=== PATIENT | male | born 1965 | race Two or more races ===

== ENCOUNTER 2018-03-07 18:54 | Inpatient (IN) | payer SELFPAY ==
[~2018-03-07] VITALS: Ht 177.8 cm; Wt 74.5 kg
[2018-03-07 19:09] VITALS: Ht 177.8 cm; Wt 74.5 kg
[2018-03-07 19:45] LABS: BASOPHIL % 0.6 % (0-2); PLATELET COUNT 294 x10^3mcL (130-400); RED CELL DISTRIBUTION WIDTH 13.5 % (11.5-14.5)
[2018-03-07 20:18] LABS: CALCIUM 9.6 mg/dL (8.5-10.1); CARBON DIOXIDE 27.4 mmol/L (21-32); CHLORIDE SERUM 108 mmol/L (98-107); CREATININE SERUM 1.3 mg/dL (0.7-1.3); GFR1 > 60 mL/min; GLUCOSE SERUM 81 mg/dL (74-106); POTASSIUM SERUM 3.8 mmol/L (3.5-5.1); SODIUM SERUM 144 mmol/L (136-145)
[2018-03-07 20:25] LABS: ALBUMIN 3.9 g/dL (3.4-5.0); ALKALINE PHOSPHATASE 58 U/L (46-116); ALT/SGPT 111 U/L (16-63); AST/SGOT 81 U/L (15-37); BILIRUBIN TOTAL 0.6 mg/dL (0.20-1.00); TOTAL PROTEIN, SERUM 7.6 g/dL (6.4-8.2)
[2018-03-07 22:48] VITALS: BP 113/55
[2018-03-07 23:24] LABS: MAGNESIUM 2.1 mg/dL (1.8-2.4); PHOSPHOROUS 2.3 mg/dL (2.5-4.9)
[2018-03-07 23:26] LABS: CHOLESTEROL/HDL RATIO 3.1
[2018-03-07 23:37] LABS: FREE T4 1.27 ng/dL (0.76-1.46); FREE THYROXINE INDEX 3.5 ug/dL (1.4-4.5); T4(THYROXINE) 11.9 ug/dL (4.7-13.3)
[2018-03-07 23:58] LABS: T3 TOTAL 2.11 ng/mL
[2018-03-08 05:39] VITALS: BP 105/61
[2018-03-08 05:52] VITALS: BP 105/61
[2018-03-08 06:09] LABS: UA SPECIFIC GRAVITY >=1.030 (1.005-1.035); microscopic required? YES; urine erythrocyte NEGATIVE (NEGATIVE)
[2018-03-08 06:21] LABS: AMPHETAMINE QUAL UR POSITIVE (See below)
[2018-03-08 06:32] LABS: CARBON DIOXIDE 23.5 mmol/L (21-32); CHLORIDE SERUM 111 mmol/L (98-107); CREATININE SERUM 0.9 mg/dL (0.7-1.3); GFR1 > 60 mL/min; GLUCOSE SERUM 83 mg/dL (74-106); POTASSIUM SERUM 3.6 mmol/L (3.5-5.1); SODIUM SERUM 144 mmol/L (136-145)
[2018-03-08 08:22] LABS: BASOPHIL % 0.5 % (0-2); PLATELET COUNT 234 x10^3mcL (130-400)
[2018-03-08 09:24] VITALS: BP 99/56
[2018-03-08 12:48] VITALS: BP 95/54
[2018-03-08 16:57] VITALS: BP 104/57
[2018-03-08 18:07] VITALS: BP 104/57
== END 2018-03-08 18:42 | disposition home or self-care (01) | DRG 917 ==
LOC: ED 18:54 → DU 21:36
PROVIDERS: Emergency Medicine; Internal Medicine
DX: T43.621A Poisoning by amphetamines, accidental (unintentional), initial encounter (principal); N17.0 Acute kidney failure with tubular necrosis; G40.909 Epilepsy, unspecified, not intractable, without status epilepticus; T40.1X1A Poisoning by heroin, accidental (unintentional), initial encounter; E83.39 Other disorders of phosphorus metabolism; K75.9 Inflammatory liver disease, unspecified; F15.188 Other stimulant abuse with other stimulant-induced disorder; F11.188 Opioid abuse with other opioid-induced disorder; R74.0 Nonspecific elevation of levels of transaminase and lactic acid dehydrogenase [LDH]; M94.0 Chondrocostal junction syndrome [Tietze]; Y92.89 Other specified places as the place of occurrence of the external cause; Z71.51 Drug abuse counseling and surveillance of drug abuser
CPT/HCPCS: 83880; 84439; G0480; J2060; J2310; J7030; Q0162

== ENCOUNTER 2018-05-03 06:06 | Inpatient (IN) | payer OTHER ==
[~2018-05-03] VITALS: Ht 182.9 cm; Wt 73.0 kg
[2018-05-03 06:10] VITALS: Ht 182.9 cm; Wt 73.0 kg
[2018-05-03 07:06] LABS: CALCIUM 8.9 mg/dL (8.5-10.1); CARBON DIOXIDE 29.4 mmol/L (21-32); CHLORIDE SERUM 92 mmol/L (98-107); GFR1 > 60 mL/min; GLUCOSE SERUM 107 mg/dL (74-106); POTASSIUM SERUM 3.8 mmol/L (3.5-5.1); SODIUM SERUM 127 mmol/L (136-145)
[2018-05-03 07:10] LABS: ALBUMIN 3.6 g/dL (3.4-5.0); ALKALINE PHOSPHATASE 65 U/L (46-116); ALT/SGPT 41 U/L (16-63); AST/SGOT 33 U/L (15-37); BILIRUBIN TOTAL 1.2 mg/dL (0.20-1.00); LIPASE 59 IU/L (73-393); TOTAL PROTEIN, SERUM 8.1 g/dL (6.4-8.2)
[2018-05-03 07:29] LABS: microscopic required? NO
[2018-05-03 07:54] LABS: BASOPHIL % 0.4 % (0-2); PLATELET COUNT 246 x10^3mcL (130-400); RED CELL DISTRIBUTION WIDTH 13.2 % (11.5-14.5)
[2018-05-03 08:28] LABS: UA SPECIFIC GRAVITY 1.025 (1.005-1.035); urine erythrocyte NEGATIVE (NEGATIVE)
[2018-05-03 13:20] VITALS: BP 126/78
[2018-05-03 13:32] LABS: MAGNESIUM 1.6 mg/dL (1.8-2.4); PHOSPHOROUS 3.2 mg/dL (2.5-4.9)
[2018-05-03 13:35] LABS: T3 TOTAL 1.02 ng/mL
[2018-05-03 13:40] LABS: FREE T4 1.07 ng/dL (0.76-1.46); FREE THYROXINE INDEX 2.9 ug/dL (1.4-4.5)
[2018-05-03 13:41] LABS: CHOLESTEROL/HDL RATIO 2.5
[2018-05-03 14:30] LABS: AMPHETAMINE QUAL UR POSITIVE (See below)
[2018-05-03 21:56] VITALS: BP 114/69
[2018-05-04 05:28] VITALS: BP 127/75
[2018-05-04 07:21] LABS: CALCIUM 8.6 mg/dL (8.5-10.1); CHLORIDE SERUM 100 mmol/L (98-107); CREATININE SERUM 0.9 mg/dL (0.7-1.3); GFR1 > 60 mL/min; GLUCOSE SERUM 112 mg/dL (74-106); MAGNESIUM 1.9 mg/dL (1.8-2.4); POTASSIUM SERUM 3.9 mmol/L (3.5-5.1); SODIUM SERUM 137 mmol/L (136-145)
[2018-05-04 07:40] LABS: PLATELET COUNT 247 x10^3mcL (130-400); RED CELL DISTRIBUTION WIDTH 13.6 % (11.5-14.5)
[2018-05-04 08:00] VITALS: BP 105/78
[2018-05-04 11:14] LABS: BAND NEUTROPHIL 1 % (0-10); BASOPHIL 0 % (0-2); MONOCYTE 11 % (0-7); SEGMENTED NEUTROPHILS 83 % (37-75)
[2018-05-04 11:15] LABS: rbc morphology (normal/abnorm) NORMAL (NORMAL)
[2018-05-04 13:00] VITALS: BP 117/77
[2018-05-04 17:07] VITALS: BP 134/74
[2018-05-04 21:26] VITALS: BP 131/74
[2018-05-04 21:30] VITALS: BP 131/74
[2018-05-05 05:01] VITALS: BP 144/87
[2018-05-05 07:23] LABS: CALCIUM 8.5 mg/dL (8.5-10.1); CHLORIDE SERUM 102 mmol/L (98-107); CREATININE SERUM 0.9 mg/dL (0.7-1.3); GFR1 > 60 mL/min; GLUCOSE SERUM 122 mg/dL (74-106); POTASSIUM SERUM 3.9 mmol/L (3.5-5.1); SODIUM SERUM 137 mmol/L (136-145)
[2018-05-05 07:26] LABS: PLATELET COUNT 311 x10^3mcL (130-400); RED CELL DISTRIBUTION WIDTH 13.8 % (11.5-14.5)
[2018-05-05 10:27] VITALS: BP 143/83
[2018-05-05 11:13] LABS: BAND NEUTROPHIL 2 % (0-10); BASOPHIL 0 % (0-2); MONOCYTE 12 % (0-7); SEGMENTED NEUTROPHILS 80 % (37-75)
[2018-05-05 12:49] VITALS: BP 149/82
[2018-05-05 17:10] VITALS: BP 143/90
[2018-05-05 20:41] VITALS: BP 138/76
[2018-05-06 05:37] VITALS: BP 147/88
[2018-05-06 06:50] LABS: ALBUMIN 2.2 g/dL (3.4-5.0); ALKALINE PHOSPHATASE 57 U/L (46-116); ALT/SGPT 22 U/L (16-63); AST/SGOT 19 U/L (15-37); BILIRUBIN TOTAL 0.4 mg/dL (0.20-1.00); CALCIUM 8.6 mg/dL (8.5-10.1); CARBON DIOXIDE 23.7 mmol/L (21-32); CHLORIDE SERUM 102 mmol/L (98-107); CREATININE SERUM 0.8 mg/dL (0.7-1.3); GFR1 > 60 mL/min; GLUCOSE SERUM 115 mg/dL (74-106); LIPASE 99 IU/L (73-393); MAGNESIUM 1.9 mg/dL (1.8-2.4); POTASSIUM SERUM 4.4 mmol/L (3.5-5.1); SODIUM SERUM 135 mmol/L (136-145); TOTAL PROTEIN, SERUM 6.7 g/dL (6.4-8.2)
[2018-05-06 08:34] LABS: PLATELET COUNT 364 x10^3mcL (130-400); RED CELL DISTRIBUTION WIDTH 12.6 % (11.5-14.5)
[2018-05-06 09:58] VITALS: BP 137/76
[2018-05-06 10:46] LABS: BAND NEUTROPHIL 0 % (0-10); BASOPHIL 0 % (0-2); MONOCYTE 7 % (0-7); SEGMENTED NEUTROPHILS 90 % (37-75)
[2018-05-06 10:47] LABS: PLATELET MORPHOLOGY PLATELETS NORMAL; rbc morphology (normal/abnorm) ABNORMAL (NORMAL)
[2018-05-06 13:01] VITALS: BP 145/80
[2018-05-06 14:40] VITALS: BP 126/81
[2018-05-06 18:46] VITALS: BP 140/65
[2018-05-06 19:20] VITALS: BP 144/79
[2018-05-07 06:01] VITALS: BP 145/85
[2018-05-07 08:34] LABS: PLATELET COUNT 372 x10^3mcL (130-400); RED CELL DISTRIBUTION WIDTH 13.6 % (11.5-14.5)
[2018-05-07 08:40] LABS: ALKALINE PHOSPHATASE 57 U/L (46-116); ALT/SGPT 25 U/L (16-63); AST/SGOT 24 U/L (15-37); BILIRUBIN TOTAL 0.33 mg/dL (0.20-1.00); CALCIUM 7.9 mg/dL (8.5-10.1); CARBON DIOXIDE 25.2 mmol/L (21-32); CHLORIDE SERUM 103 mmol/L (98-107); CREATININE SERUM 0.7 mg/dL (0.7-1.3); GFR1 > 60 mL/min; GLUCOSE SERUM 112 mg/dL (74-106); MAGNESIUM 1.7 mg/dL (1.8-2.4); PHOSPHOROUS 3.6 mg/dL (2.5-4.9); POTASSIUM SERUM 3.7 mmol/L (3.5-5.1); SODIUM SERUM 136 mmol/L (136-145); TOTAL PROTEIN, SERUM 6.2 g/dL (6.4-8.2)
[2018-05-07 09:49] VITALS: BP 145/85
[2018-05-07 09:57] VITALS: BP 125/77
[2018-05-07 10:03] LABS: ATYPICAL LYMPH 1 %; BAND NEUTROPHIL 0 % (0-10); BASOPHIL 0 % (0-2); MONOCYTE 12 % (0-7); SEGMENTED NEUTROPHILS 86 % (37-75)
[2018-05-07 10:04] LABS: PLATELET MORPHOLOGY PLATELETS NORMAL; rbc morphology (normal/abnorm) ABNORMAL (NORMAL)
[2018-05-07 12:42] VITALS: BP 104/75
[2018-05-07 16:48] VITALS: BP 141/78
[2018-05-07 20:17] VITALS: BP 140/73
[2018-05-08 05:40] VITALS: BP 123/69
[2018-05-08 06:41] LABS: RED CELL DISTRIBUTION WIDTH 13.7 % (11.5-14.5)
[2018-05-08 07:03] LABS: ALKALINE PHOSPHATASE 89 U/L (46-116); ALT/SGPT 22 U/L (16-63); AST/SGOT 27 U/L (15-37); BILIRUBIN DIRECT 0.11 mg/dL (0.0-0.2); BILIRUBIN TOTAL 0.29 mg/dL (0.20-1.00); CALCIUM 8.1 mg/dL (8.5-10.1); CARBON DIOXIDE 27.1 mmol/L (21-32); CHLORIDE SERUM 104 mmol/L (98-107); CREATININE SERUM 0.9 mg/dL (0.7-1.3); GFR1 > 60 mL/min; GLUCOSE SERUM 95 mg/dL (74-106); POTASSIUM SERUM 4.5 mmol/L (3.5-5.1); SODIUM SERUM 141 mmol/L (136-145); TOTAL PROTEIN, SERUM 6.7 g/dL (6.4-8.2)
[2018-05-08 07:17] LABS: PLATELET COUNT 421 x10^3mcL (130-400)
[2018-05-08 10:13] VITALS: BP 128/66
[2018-05-08 10:36] LABS: ATYPICAL LYMPH 1 %; BAND NEUTROPHIL 1 % (0-10); BASOPHIL 0 % (0-2); MONOCYTE 10 % (0-7); SEGMENTED NEUTROPHILS 76 % (37-75)
[2018-05-08 10:38] LABS: PLATELET MORPHOLOGY PLATELETS NORMAL; rbc morphology (normal/abnorm) ABNORMAL (NORMAL)
[2018-05-08 14:07] VITALS: BP 121/68
[2018-05-08 17:00] VITALS: BP 142/80
[2018-05-08 20:38] VITALS: BP 124/73
[2018-05-09 05:50] VITALS: BP 136/78
[2018-05-09 06:54] LABS: RED CELL DISTRIBUTION WIDTH 13.6 % (11.5-14.5)
[2018-05-09 06:56] LABS: PLATELET COUNT 444 x10^3mcL (130-400)
[2018-05-09 07:09] LABS: CARBON DIOXIDE 29.2 mmol/L (21-32); CHLORIDE SERUM 102 mmol/L (98-107); CREATININE SERUM 0.7 mg/dL (0.7-1.3); GFR1 > 60 mL/min; GLUCOSE SERUM 104 mg/dL (74-106); POTASSIUM SERUM 3.9 mmol/L (3.5-5.1); SODIUM SERUM 139 mmol/L (136-145)
[2018-05-09 09:32] VITALS: BP 124/78
[2018-05-09 13:29] VITALS: BP 129/74
[2018-05-09 17:28] VITALS: BP 132/73
[2018-05-09 20:19] VITALS: BP 121/69
[2018-05-10 05:38] VITALS: BP 124/74
[2018-05-10 06:56] LABS: CALCIUM 8.4 mg/dL (8.5-10.1); CARBON DIOXIDE 28.7 mmol/L (21-32); CHLORIDE SERUM 100 mmol/L (98-107); CREATININE SERUM 0.8 mg/dL (0.7-1.3); GFR1 > 60 mL/min; GLUCOSE SERUM 106 mg/dL (74-106); POTASSIUM SERUM 3.8 mmol/L (3.5-5.1); SODIUM SERUM 132 mmol/L (136-145)
[2018-05-10 08:09] LABS: BASOPHIL % 1.2 % (0-2); RED CELL DISTRIBUTION WIDTH 13.8 % (11.5-14.5)
[2018-05-10 08:16] LABS: PLATELET COUNT 485 x10^3mcL (130-400)
[2018-05-10 08:52] VITALS: BP 137/77
[2018-05-10 12:31] VITALS: BP 118/68
[2018-05-10 16:35] VITALS: BP 131/75
[2018-05-10 19:30] VITALS: BP 123/66
[2018-05-11 06:03] VITALS: BP 117/69
[2018-05-11 06:29] LABS: CALCIUM 8.5 mg/dL (8.5-10.1); CARBON DIOXIDE 30.3 mmol/L (21-32); CHLORIDE SERUM 99 mmol/L (98-107); CREATININE SERUM 0.9 mg/dL (0.7-1.3); GFR1 > 60 mL/min; GLUCOSE SERUM 96 mg/dL (74-106); POTASSIUM SERUM 4.3 mmol/L (3.5-5.1); SODIUM SERUM 136 mmol/L (136-145)
[2018-05-11 06:52] LABS: BASOPHIL % 0.5 % (0-2); RED CELL DISTRIBUTION WIDTH 12.8 % (11.5-14.5)
[2018-05-11 07:25] LABS: PLATELET COUNT 551 x10^3mcL (130-400)
[2018-05-11 08:55] VITALS: BP 121/71
[2018-05-11 16:10] VITALS: BP 122/73
[2018-05-11 17:56] VITALS: BP 122/73
[2018-05-11 20:52] VITALS: BP 123/64
[2018-05-12 05:42] VITALS: BP 110/72
[2018-05-12 06:21] LABS: BASOPHIL % 0.7 % (0-2); RED CELL DISTRIBUTION WIDTH 13.5 % (11.5-14.5)
[2018-05-12 06:34] LABS: CALCIUM 8.5 mg/dL (8.5-10.1); CARBON DIOXIDE 33.3 mmol/L (21-32); CHLORIDE SERUM 98 mmol/L (98-107); CREATININE SERUM 0.7 mg/dL (0.7-1.3); GFR1 > 60 mL/min; GLUCOSE SERUM 90 mg/dL (74-106); POTASSIUM SERUM 4.1 mmol/L (3.5-5.1); SODIUM SERUM 135 mmol/L (136-145)
[2018-05-12 06:49] LABS: PLATELET COUNT 529 x10^3mcL (130-400)
[2018-05-12 08:44] VITALS: BP 124/63
[2018-05-12 12:02] VITALS: BP 102/61
[2018-05-12 16:35] VITALS: BP 118/68
[2018-05-12 20:37] VITALS: BP 117/66
[2018-05-13 05:44] VITALS: BP 115/70
[2018-05-13 07:09] LABS: CALCIUM 8.6 mg/dL (8.5-10.1); CARBON DIOXIDE 29.9 mmol/L (21-32); CHLORIDE SERUM 98 mmol/L (98-107); CREATININE SERUM 0.8 mg/dL (0.7-1.3); GFR1 > 60 mL/min; GLUCOSE SERUM 98 mg/dL (74-106); POTASSIUM SERUM 4.1 mmol/L (3.5-5.1); SODIUM SERUM 131 mmol/L (136-145)
[2018-05-13 07:50] LABS: RED CELL DISTRIBUTION WIDTH 14.1 % (11.5-14.5)
[2018-05-13 09:05] VITALS: BP 118/69
[2018-05-13 11:16] LABS: BAND NEUTROPHIL 0 % (0-10); BASOPHIL 0 % (0-2); MONOCYTE 1 % (0-7); SEGMENTED NEUTROPHILS 96 % (37-75)
[2018-05-13 11:17] LABS: PLATELET MORPHOLOGY PLATELETS NORMAL; rbc morphology (normal/abnorm) NORMAL (NORMAL)
[2018-05-13 13:00] VITALS: BP 104/64
[2018-05-13 14:56] LABS: PLATELET COUNT 562 x10^3mcL (130-400)
[2018-05-13 15:41] VITALS: BP 117/78
[2018-05-13 17:37] VITALS: BP 112/65
[2018-05-13 20:56] VITALS: BP 105/63
[2018-05-14 05:16] VITALS: BP 118/71
[2018-05-14 07:00] LABS: RED CELL DISTRIBUTION WIDTH 13.5 % (11.5-14.5)
[2018-05-14 07:09] LABS: PLATELET COUNT 597 x10^3mcL (130-400)
[2018-05-14 07:21] LABS: CALCIUM 8.7 mg/dL (8.5-10.1); CARBON DIOXIDE 28.9 mmol/L (21-32); CHLORIDE SERUM 95 mmol/L (98-107); CREATININE SERUM 0.9 mg/dL (0.7-1.3); GFR1 > 60 mL/min; GLUCOSE SERUM 101 mg/dL (74-106); POTASSIUM SERUM 4.1 mmol/L (3.5-5.1); SODIUM SERUM 131 mmol/L (136-145)
[2018-05-14 08:39] VITALS: BP 126/66
[2018-05-14 10:51] LABS: BAND NEUTROPHIL 0 % (0-10); MONOCYTE 17 % (0-7); SEGMENTED NEUTROPHILS 71 % (37-75)
[2018-05-14 10:52] LABS: ATYPICAL LYMPH 5 %; BASOPHIL 0 % (0-2)
[2018-05-14 10:53] LABS: PLATELET MORPHOLOGY PLATELETS INCREASED; rbc morphology (normal/abnorm) ABNORMAL (NORMAL)
[2018-05-14 13:17] VITALS: BP 126/67
[2018-05-14 14:45] VITALS: BP 126/67
[2018-05-14 16:23] VITALS: BP 108/62
[2018-05-14 21:58] VITALS: BP 117/69
[2018-05-15 05:00] VITALS: BP 122/76
[2018-05-15 06:30] LABS: BASOPHIL % 0.5 % (0-2); RED CELL DISTRIBUTION WIDTH 14.1 % (11.5-14.5)
[2018-05-15 06:33] LABS: CALCIUM 8.7 mg/dL (8.5-10.1); CARBON DIOXIDE 25.1 mmol/L (21-32); CHLORIDE SERUM 96 mmol/L (98-107); CREATININE SERUM 0.9 mg/dL (0.7-1.3); GFR1 > 60 mL/min; GLUCOSE SERUM 112 mg/dL (74-106); SODIUM SERUM 130 mmol/L (136-145)
[2018-05-15 08:01] LABS: PLATELET COUNT 643 x10^3mcL (130-400)
[2018-05-15 09:44] VITALS: BP 106/73
[2018-05-15 13:48] VITALS: BP 109/60
[2018-05-15] MEDS ORDERED: CLEOCIN HCL300 MG PO (15:58)
[2018-05-15] MEDS ORDERED: LEVAQUIN750 MG PO (15:58)
[2018-05-15 16:25] VITALS: BP 108/36
[2018-05-15 17:25] VITALS: BP 132/76
== END 2018-05-15 18:30 | disposition home or self-care (01) | DRG 720 ==
LOC: ED 06:06 → MU 10:14 → DU 10:14 → MU 12:35 → DU 05-04 02:32
PROVIDERS: Emergency Medicine; Family Medicine; Internal Medicine
DX: A41.9 Sepsis, unspecified organism (principal); J96.01 Acute respiratory failure with hypoxia; E43 Unspecified severe protein-calorie malnutrition; N17.0 Acute kidney failure with tubular necrosis; J18.9 Pneumonia, unspecified organism; E83.42 Hypomagnesemia; E87.1 Hypo-osmolality and hyponatremia; D47.3 Essential (hemorrhagic) thrombocythemia; B18.2 Chronic viral hepatitis C; M51.36 Other intervertebral disc degeneration, lumbar region; D63.8 Anemia in other chronic diseases classified elsewhere; F15.10 Other stimulant abuse, uncomplicated; G40.909 Epilepsy, unspecified, not intractable, without status epilepticus; Z68.21 Body mass index [BMI] 21.0-21.9, adult; Z91.14 Patient's other noncompliance with medication regimen
CPT/HCPCS: 36600; 72072; 83880; 84439; 85378; 90658; 94150; 97110-GP; 97116-GP; 97530-GP; J0456; J0696; J1170; J1644; J1885; J1956; J2060; J2250; J2270; J2310; J2405; J2543; J3010; J3370; J3490; J7030; J7040; J7620; Q0092; Q9967